=== PATIENT | female | born 1945 | race Caucasian/White ===

== ENCOUNTER 2025-01-05 11:16 | Emergency (ER) | payer MEDICARE, SELFPAY ==
[2025-01-05 11:30] VITALS: BP 192/102; PULSE 77; RESP 20; TEMP 37.1; O2SAT 96
--- NOTE | 2025-01-05 12:24 | PC.NURSE ---
provider in with pt, discussing plan of care. call placed to er for transfer
--- NOTE | 2025-01-05 12:33 | PC.NURSE ---
provider in room with pt and daughter, requesting to be sent to [place]. provider yasmeen solitario speaking with [facility]
--- NOTE | 2025-01-05 12:39 | ED.GENADULT ---
HPI - General Adult General Chief complaint: Unspecified Stated complaint: High B/P Time Seen by Provider: 01/05/25 12:00 Source: patient and RN notes reviewed Mode of arrival: ambulatory Limitations: no limitations History of Present Illness HPI narrative: 79-year-old female presents Express Care from optometry office complaining of high blood pressure and right vision problems. Patient said over the last 2-3 days she can see over right eye. Patient also reports that her blood pressure was as high as the 200 systolics at the optometry office and she was sent here for further evaluation of her blood pressure. Patient says she has outpatient scheduled appointment with an investigative agent for for her retinal artery occlusion. Also reports a headache. Patient states she has had fatigue over the last 10 years as well. Patient is does not have a medicine doctor but says she sees a psychiatrist. Patient does have a history of hypertension and takes lisinopril for it. Patient denies any slurred speech, focal weakness, facial droop, dizziness, chest pains, breathing problems, nausea vomiting, or any other symptoms. Patient had her eyes dilated prior to arrival at the aged or disabled carer office. Related Data Home Medications ?Medication ?Instructions ?Recorded ?Confirmed ?Last Taken ?Type bupropion HCl 150 mg 24 hr tablet, 150 mg PO DAILY 01/05/25 Unknown History extended release diazepam 2 mg tablet mg 01/05/25 Unknown History fluoxetine 10 mg capsule mg 01/05/25 Unknown History fluoxetine 20 mg capsule mg 01/05/25 Unknown History trazodone 100 mg tablet mg 01/05/25 Unknown History Allergies Allergy/AdvReac Type Severity Reaction Status Date / Time No Known Allergies Allergy Verified 01/05/25 11:52 Review of Systems Review of Systems: CONSTITUTIONAL: Denies fever, chills, or sweats. EYES: Positive visual changes. Negative for redness, or discharge. ENT: Denies rhinorrhea, congestion, sore throat, or otalgia. CARDIOVASCULAR: Denies chest pain, palpitations, or edema. RESPIRATORY: Denies cough or dyspnea. GASTROINTESTINAL: Denies abdominal pain, nausea, vomiting, or diarrhea. GENITOURINARY: Denies dysuria or hematuria. SKIN: Denies rash or itching. MUSCULOSKELETAL: Denies back pain, joint pain, or myalgia. NEUROLOGIC: Positive for headache. Negative for numbness, slurred speech, focal weakness, facial droop, confusion, seizures, loss of consciousness or weakness. PSYCHIATRIC: Denies anxiety or depression. All other systems reviewed are negative, except as documented in HPI. PMFSH Comments At the time of my signature, I reviewed and agree with the nursing past medical, surgical, social, and family history. There is no relevant family history pertinent to the patient complaint. Exam Narrative: GENERAL: This is a well-nourished, well-developed adult, in no apparent distress. They are non ill-appearing, nontoxic appearing. HEAD: normocephalic, atraumatic. EYES: Sclera clear/white. Conjunctiva normal. Vision is grossly intact the left eye. Patient says she is unable to see to the right eye. Extraocular movements intact. Pupils are dilated. EARS: External ears normal, NOSE: External nose normal THROAT: Mucous membranes moist, p NECK: Neck supple, CARDIOVASCULAR: Regular rate and rhythm without murmurs, gallops, or rubs. RESPIRATORY: Clear to auscultation. Breath sounds equal bilaterally. No wheezes, rales, or rhonchi. GASTROINTESTINAL: Abdomen soft, non-tender, nondistended. Bowel sounds are active. No hepato-splenomegaly, or palpable masses. No guarding. SKIN: warm, Dry, intact with no suspicious lesions or rash, good texture and turgor. NEURO: awake, alert, and oriented to person, place and time. There were no obvious focal neurologic abnormalities. 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 Leg strength 5/5 equal bilaterally. No facial droop. Speech is clear. EXTREMITIES: No joint tenderness, effusion, or edema noted. BACK: Nontender without deformity. Course Course Emergency Course: Portions of this record may have been created with voice recognition software Level of Care: Express Care Visit Vital Signs Vital signs: Vital Signs Temperature 98.7 F 01/05/25 11:30 Pulse Rate 77 01/05/25 11:30 Respiratory Rate 01/05/25 11:30 Blood Pressure 192/102 H 01/05/25 11:30 Pulse Oximetry 96 01/05/25 11:30 Oxygen Delivery Room Air 01/05/25 11:30 Temperature 98.7 F 01/05/25 11:30 Pulse Rate 77 01/05/25 11:30 Respiratory Rate 20 01/05/25 11:30 Blood Pressure 192/102 H 01/05/25 11:30 Pulse Oximetry 96 01/05/25 11:30 Oxygen Delivery Room Air 01/05/25 11:30 Reviewed Transfer Transfered to: [facility] Transportation: Other (Private vehicle) Transfer rationale: Possible retinal artery occlusion, rule out stroke, patient require higher level care Accepting physician: Dr. Sparks Medical Decision Making MDM Narrative Medical decision making narrative: Patient likely having hypertensive crisis patient's headache and vision changes. Cannot rule out CVA. NIH score of 2. Symptoms have been having going on the last 2-3 days. Last known normal adult least 2-3 days ago. Given patient's symptoms, it is recommend the patient seek a higher level care and proceed immediately to the emergency department. Patient family also the she go to an ER that has ophthalmology and neurosurgeon interventionalist. Patient family agreeable to go to [facility]. Called over to [facility] and spoke with Shara Zapata who is aware this patient and Dr. Sparks accepted the patient for transfer. Patient's mother says she will take her over to [facility]. Patient advised to remain NPO and proceed immediately to the ER. Differential Diagnosis Differential Diagnosis: CVA, retinal artery occlusion, cataract, hypertensive crisis, hypertensive urgency Vital Signs Vital Signs: Vital Signs Temperature 98.7 F 01/05/25 11:30 Pulse Rate 77 01/05/25 11:30 Respiratory Rate 20 01/05/25 11:30 Blood Pressure 192/102 H 01/05/25 11:30 Pulse Oximetry 96 01/05/25 11:30 Oxygen Delivery Room Air 01/05/25 11:30 Temperature 98.7 F 01/05/25 11:30 Pulse Rate 77 01/05/25 11:30 Respiratory Rate 20 01/05/25 11:30 Blood Pressure 192/102 H 01/05/25 11:30 Pulse Oximetry 96 01/05/25 11:30 Oxygen Delivery Room Air 01/05/25 11:30 Critical Care Time Critical Care Time Critical Care Time: No Discharge Plan Discharge Clinical Impression: Vision problems Hypertension Qualifiers: Hypertension type: unspecified Qualified Code(s): I10 - Essential (primary) hypertension Patient Disposition: Acute Care Hospital Condition: Stable Patient Language: Azeri Prescriptions: No Action trazodone 100 mg tablet diazepam 2 mg tablet fluoxetine 10 mg capsule fluoxetine 20 mg capsule bupropion HCl 150 mg tablet extended release 24 hr 150 mg PO DAILY Follow-up/Referrals: PHYSICIAN NOT ON STAFF,NONSTAFF [Primary Care Provider] - Time of Disposition: 12:39
== END 2025-01-05 12:42 | disposition short-term general hospital (02) ==
DX: H53.9 Unspecified visual disturbance (principal); I10 Essential (primary) hypertension; H34.9 Unspecified retinal vascular occlusion; F32.A Depression, unspecified; Z86.73 Personal history of transient ischemic attack (TIA), and cerebral infarction without residual deficits
CPT/HCPCS: 99213; G0463

== ENCOUNTER 2025-01-05 13:23 | Observation (INO) | payer MEDICARE, SELFPAY ==
[2025-01-05] VITALS (87 sets, daily range): BP systolic 128–239; BP diastolic 57–191; PULSE 65–142; RESP 8–27; TEMP 36.4; O2SAT 93–100
--- NOTE | ~2025-01-05 | XR_ITS ---
CHEST RADIOGRAPH CLINICAL HISTORY: cva w/u . COMPARISON: None available TECHNIQUE: Single portable view of the chest. FINDINGS The cardiomediastinal silhouette is unremarkable. The lungs are clear. IMPRESSION: No focal infiltrate or effusion. Reviewed, dictated and finalized at location A.
--- NOTE | ~2025-01-05 | CT_ITS ---
EXAMINATION: CTA BRAIN/CAROTID DATE: 01/05/2025 14:30 INDICATION: Stroke TECHNIQUE: Computed tomographic angiography (CTA) of the head and neck was performed with 100 mL Omni paque-350 intravenous contrast. Multiplanar reconstructions and maximum intensity projection 3D-recon structions of the carotid arteries and of the intracranial arteries were created by the technologist on a separate workstation. Precontrast CT of the head was also obtained. Automated exposure control and iterative reconstruction technique were employed.The dose-length product was 1754.01 mGy-cm. COMPARISON: None. FINDINGS: Carotid arteries: Visualized aortic arch is normal in caliber with no dissection and small amount of nonhemodynamically significant atherosclerotic plaque. Right vertebral artery is dominant. There is small of atheroscle rotic plaque with 0% stenosis of the right and left carotid bulbs relative to normal distal artery clark men diameter (NASCET criteria). Likely benign Agnes right thyroid nodule. Mild emphysema in the v isualized upper lungs. OR calcifications at bilateral breast implants. Severe cervical spondylosis. Head: No acute intracranial hemorrhage, acute infarction or abnormal extra axial fluid collection. Dystroph ic calcifications and old lacunar infarcts at the bilateral basal ganglia. There is mild scattered wh ite matter hypoattenuation consistent with chronic small vessel ischemic disease. Symmetric prominenc e of the sulci consistent with mild age-appropriate diffuse cerebral volume loss.Ventricles are norm al and symmetric. No mass/mass effect. No abnormally enhancing brain lesions on the postcontrast imag ing. Changes of bilateral intraocular lens replacement. The orbits, paranasal sinuses and mastoid air cells are normal. There is suggestion of some bone graft material along the floor of the right maxil jolly sinus surrounding tip of a dental implant. Intracranial arteries Vertebral arteries are codominant. Small amount of nonhemodynamically significant atherosclerotic tomy que at the bilateral carotid siphons. There is no hemodynamically significant stenosis in the vertebr al, basilar and internal carotid arteries. Both A1 and P1 segments are patent. There is a moderate, 5 0-70% stenosis at the left P1 segment. There are no aneurysms identified. Cerebral arterial arboriza tion appears symmetric. IMPRESSION: 1. Small mild atherosclerotic plaque with 0% stenosis of the right and left carotid bulbs relative to normal distal artery lumen diameter (NASCET criteria). 2. Moderate, 50-70% stenosis P1 segment of the left posterior cerebral artery. Otherwise unremarkable cerebral CT angiogram. 3. Small old infarcts at the bilateral basal ganglia. No acute intracranial process or abnormally enh ancing brain lesions. 4. Age-related changes including mild diffuse volume loss and mild scattered white matter hypoattenua tion consistent with chronic small vessel ischemic disease. Reviewed, dictated and finalized at location A. IMPRESSION: 1. Small mild atherosclerotic plaque with 0% stenosis of the right and left car otid bulbs relative to normal distal artery lumen diameter (NASCET criteria). 2. Moderate, 50-70% stenosis P1 segment of the left posterior cerebral artery. Otherwise unremarkable cerebral CT angiogram. 3. Small old infarcts at the bilateral basal ganglia. No acute intracranial pro cess or abnormally enhancing brain lesions. 4. Age-related changes including mild diffuse volume loss and mild scattered wh ite matter hypoattenuation consistent with chronic small vessel ischemic diseas e.
--- OUTSIDE RECORDS SUMMARY | 2025-01-05 13:30 | XMS_ITS | Clinical Summary ---
Author Organization [facility] Address [address] 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
--- OUTSIDE RECORDS SUMMARY | 2025-01-05 13:30 | XMS_ITS | Encounter Summary ---
Author Organization [facility] Address 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
--- NOTE | 2025-01-05 13:50 | ECG_ITS ---
Test Date: 2025-01-05 13:53:07 Measurements Intervals [place] Rate: 65 P: -27 MS: 107 QRS: -3 QRSD: 97 T: 87 QT: 375 QTc: 392 Interpretive Statements SINUS RHYTHM WITH SHORT MS INTERVAL DELAYED PRECORDIAL R/S TRANSITION LEFT VENTRICULAR HYPERTROPHY AND ST-T CHANGE BASELINE ARTIFACT- I, III, AVR, AVL, AVF BORDERLINE ECG No previous ECG available for comparison Electronically Signed On 01-05-2025 14:02:19 CDT by Cristiano Monique D.O.
[2025-01-05 14:13] LABS: Hematocrit 35.2 % (37.0-47.0); Hemoglobin 11.5 g/dL (12.0-15.0); Immature Granulocyte Percent A 0.2 % (0-0.5); Lymphocytes Absolute Auto 2.70 K/mm3 (0.9-3.2); Mean Corpuscular HGB Conc 32.7 g/dl (32-36); Mean Corpuscular Hemoglobin 28.9 pg (26-34); Mean Corpuscular Volume 88.4 fl (80-100); Nucleated Red Blood Cells Absolute Auto 0.000 K/mm3 (0.0-0.012); Nucleated Red Blood Cells Perc 0.0 % (0.0-0.2); Platelet Count Result 279 k/mm3 (150-375); Red Blood Count 3.98 M/mm3 (4.2-5.4); White Blood Count 8.8 K/mm3 (4.5-10.0)
--- OUTSIDE RECORDS SUMMARY | 2025-01-05 14:19 | XMS_ITS | Clinical Summary ---
Author Organization [facility] Address [address] 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
--- OUTSIDE RECORDS SUMMARY | 2025-01-05 14:19 | XMS_ITS | Encounter Summary ---
Author Organization [facility] Address 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
[2025-01-05 14:23] LABS: Estimated CRCL calculation 33 ml/min; Estimated Glomerular Filt Rate 48
[2025-01-05 14:27] LABS: Alanine Aminotransferase 16 U/L (6-35); Albumin Level 3.7 g/dL (3.5-5.1); Alkaline Phosphatase 73 U/L (38-126); Anion Gap 8 mmol/L (4-12); Aspartate Amino Transferase 31 U/L (14-36); Bilirubin,Total 0.4 mg/dL (0.2-1.3); Blood Urea Nitrogen 12 mg/dL (7-17); Calcium 8.8 mg/dL (8.4-10.2); Carbon Dioxide 23 mmol/L (22-30); Chloride 108 mmol/L (98-107); Estimated CRCL calculation 38 ml/min; Estimated Glomerular Filt Rate 57; Glucose 96 mg/dL (65-110); Potassium 3.6 mmol/L (3.4-5.0); Sodium 139 mmol/L (137-145); Total Protein 6.5 g/dL (6.3-8.2)
[2025-01-05 14:33] LABS: Troponin I < 0.012 ng/mL (0.000-0.034)
[2025-01-05 14:40] LABS: INR 1.0; Prothrombin Time 13.2 Seconds (11.1-14.7)
[2025-01-05 14:41] LABS: Partial Thromboplastin Time 31.7 Seconds (22.3-36.8)
[2025-01-05 14:49] LABS: Magnesium 1.8 mg/dL (1.6-2.3)
--- NOTE | 2025-01-05 15:25 | ED.GENADULT ---
HPI - General Adult General Chief complaint: Recheck/Abnormal Lab/Rx <Jailyn Alberto PA-C - Last Filed: 01/05/25 19:36> Stated complaint: HTN <Jailyn Alberto PA-C - Last Filed: 01/05/25 19:36> Time Seen by Provider: 01/05/25 13:58 <DAWSON Vaughn Last Filed: 01/05/25 19:36> Source: patient <DAWSON Vaughn Last Filed: 01/05/25 19:36> Mode of arrival: ambulatory <DAWSON Vaughn Last Filed: 01/05/25 19:36> Limitations: no limitations <DAWSON Vaughn Last Filed: 01/05/25 19:36> History of Present Illness HPI narrative: Patient is a 79-year-old female who presents the ED with report of right eye blindness and elevated blood pressure. Patient reports she was doing a crossword puzzle two days ago when she suddenly lost vision in her R eye. States she is occasionally able to see lights in her R eye. She saw an abrasive mixer yesterday and was diagnosed with a central retinal artery occlusion. Was referred to a retinal specialist next week. Patient went to an urgent care today as her blood pressure was elevated. Patient is on lisinopril 20 mg daily. She takes this regularly. She does not remember the last time she checked her blood pressure, greater than at least 1 year ago. Patient denies left eye vision changes, slurred speech, confusion, numbness, tingling, weakness of extremities. <DAWSON Vaughn Last Filed: 01/05/25 19:36> Related Data Home medications: Home Medications ?Medication ?Instructions ?Recorded ?Confirmed ?Last Taken ?Type bupropion HCl 150 mg 24 hr tablet, 150 mg PO DAILY 01/05/25 01/05/25 Unknown History extended release diazepam 2 mg tablet 4 mg HS 01/05/25 Unknown History fluoxetine 10 mg capsule 10 mg 01/05/25 Unknown History fluoxetine 20 mg capsule 20 mg 01/05/25 Unknown History guaifenesin 1,200 mg tablet, 1,200 mg PO HS 01/05/25 01/05/25 Unknown History extended release 12 hr (Mucinex) lisinopril 10 mg tablet 10 mg PO DAILY 01/05/25 01/05/25 Unknown History trazodone 100 mg tablet 200 mg 01/05/25 Unknown History <DAWSON Vaughn Last Filed: 01/05/25 19:36> Allergies/adverse reactions: Allergies Allergy/AdvReac Type Severity Reaction Status Date / Time No Known Allergies Allergy Verified 01/05/25 13:58 <DAWSON Vaughn Last Filed: 01/05/25 19:36> Review of Systems Review of Systems: All systems reviewed & are unremarkable except as noted in HPI. <DAWSON Vaughn Last Filed: 01/05/25 19:36> All systems reviewed & are unremarkable except as noted in HPI and below <DAWSON Vaughn Last Filed: 01/05/25 19:36> Exam Narrative: GENERAL: Elderly, well-nourished, non-toxic, in no acute distress. HEAD: Normocephalic, atraumatic. EYES: PERRL/EOMI, conjunctivae clear bilaterally. No nystagmus. NECK: Supple. No meningeal signs. RESPIRATORY: Airway patent, respirations nonlabored. Clear to auscultation bilaterally, no rales, rhonchi, wheezing. CARDIOVASCULAR: Regular rate and rhythm without murmurs, rubs, or gallops. Peripheral pulses 2+ and equal bilaterally. MUSCULOSKELETAL: Moves all extremities. No gross deformities. SKIN: Warm, dry, normal color. No rashes. NEURO: A&O X3. Speech clear. Follows commands. Right eye visual loss, unable to appreciate any shapes or lights in right eye. Sensation grossly intact. Steady gait. No ataxic movements. Strength 5/5 in upper and lower extremities bilaterally. [id number] and [id number]-vz-[id number] testing slightly uncoordinated bilaterally, but appear symmetric bilaterally. No pronator drift. Equal mud analysis well logging captain strength bilaterally. PSYCHIATRIC: Appropriate mood and affect. Normal interaction. <DAWSON Vaughn Last Filed: 01/05/25 19:36> Course Course Emergency Course: Patient signed out to me the evening of 01/05/2025. Patient's home medications were reviewed and I did place orders for PM medications. Patient still awaiting a bed at [facility] versus [place] ([facility] for both) at sign out on 01/06/25 07:30am. <Lindsey Dennis MD - Last Filed: 01/06/25 07:26> Patient signed out to me the evening of 01/05/2025. Patient's home medications were reviewed and I did place orders for PM medications. Patient still awaiting a bed at [facility] versus [place] ([facility] for both) at sign out on 01/06/25 07:30am. 01/07/25 at 1745: Admit to hospitalist service for observation. Still awaiting a bed at [facility] and [facility]. Patient has received hydralazine x1 today for uncontrolled hypertension. <Nate Nelson MD - Last Filed: 01/07/25 17:54> [employer]/PA Physician Supervision I did review the chart agree with the management <Moreno Dalton MD - Last Filed: 01/05/25 18:15> Vital Signs Vital signs: Vital Signs Temperature 97.5 F L 01/05/25 13:29 Pulse Rate 88 01/05/25 13:29 Respiratory Rate 16 01/05/25 13:29 Blood Pressure 201/101 H 01/05/25 13:29 Pulse Oximetry 98 01/05/25 13:29 Temperature 98.2 F 01/07/25 16:40 Pulse Rate 81 01/07/25 17:22 Respiratory Rate 16 01/07/25 17:22 Blood Pressure 142/86 H 01/07/25 17:22 Pulse Oximetry 96 01/07/25 17:22 Oxygen Delivery Room Air 01/05/25 13:56 <Jailyn Alberto PA-C - Last Filed: 01/05/25 19:36> Vital Signs Temperature 97.5 F L 01/05/25 13:29 Pulse Rate 88 01/05/25 13:29 Respiratory Rate 16 01/05/25 13:29 Blood Pressure 201/101 H 01/05/25 13:29 Pulse Oximetry 98 01/05/25 13:29 Temperature 98.2 F 01/07/25 16:40 Pulse Rate 81 01/07/25 17:22 Respiratory Rate 16 01/07/25 17:22 Blood Pressure 142/86 H 01/07/25 17:22 Pulse Oximetry 96 01/07/25 17:22 Oxygen Delivery Room Air 01/05/25 13:56 <Moreno Dalton MD - Last Filed: 01/05/25 18:15> Vital Signs Temperature 97.5 F L 01/05/25 13:29 Pulse Rate 88 01/05/25 13:29 Respiratory Rate 16 01/05/25 13:29 Blood Pressure 201/101 H 01/05/25 13:29 Pulse Oximetry 98 01/05/25 13:29 Temperature 98.2 F 01/07/25 16:40 Pulse Rate 81 01/07/25 17:22 Respiratory Rate 16 01/07/25 17:22 Blood Pressure 142/86 H 01/07/25 17:22 Pulse Oximetry 96 01/07/25 17:22 Oxygen Delivery Room Air 01/05/25 13:56 <Lindsey Dennis MD - Last Filed: 01/06/25 07:26> Vital Signs Temperature 97.5 F L 01/05/25 13:29 Pulse Rate 88 01/05/25 13:29 Respiratory Rate 16 01/05/25 13:29 Blood Pressure 201/101 H 01/05/25 13:29 Pulse Oximetry 98 01/05/25 13:29 Temperature 98.2 F 01/07/25 16:40 Pulse Rate 81 01/07/25 17:22 Respiratory Rate 16 01/07/25 17:22 Blood Pressure 142/86 H 01/07/25 17:22 Pulse Oximetry 96 01/07/25 17:22 Oxygen Delivery Room Air 01/05/25 13:56 <Nate Nelson MD - Last Filed: 01/07/25 17:54> Medical Decision Making MDM Narrative Medical decision making narrative: Patient presented to ED due with 2 day history of right eye vision loss, elevated blood pressure. Patient's blood pressure 201/101 upon arrival. She does take lisinopril 20 mg daily, but does not remember the last time she has actually checked her blood pressure. May have been elevated for quite some time. She does not have any appreciable vision in her right eye. Unable to see lights or shapes. She is otherwise neurologically intact upon my evaluation. I do not appreciate any other focal deficits. CVA workup was initiated. EKG with sinus rhythm. No significant concerning ST changes. Laboratory studies without leukocytosis. Hemoglobin 11.5. No records to compare to. CMP is fairly unremarkable. Stable kidney function. Stable electrolytes. Troponin undetectable. Chest x-ray is clear. CTA brain and carotids was obtained showing moderate 50-70% stenosis of the P1 segment of the left posterior cerebral artery. Small old infarcts. Age-related changes. Patient will need further neurologic and ophthalmologic evaluation. Unfortunately we do not have either the services here to us today. Will require transfer to tertiary center. Patient would prefer to go to [facility]. Discussed case with Dr. Rhodes, neurology @ [facility], accepted patient for transfer. Awaiting bed placement. Recommended to start aspirin and Plavix. Recommend to keep blood pressure around [address] Juares, neurology @ [facility], accepted patient for transfer under Dr. Hutchins. Awaiting bed placement. Care signed out to Dr. Dennis at shift change pending transfer bed placement. <Jailyn Alberto PA-C - Last Filed: 01/05/25 19:36> Medical Records Medical records reviewed: Yes I reviewed the external patient's medical records. <Jailyn Alberto PA-C - Last Filed: 01/05/25 19:36> Vital Signs Vital Signs: Vital Signs Temperature 97.5 F L 01/05/25 13:29 Pulse Rate 88 01/05/25 13:29 Respiratory Rate 16 01/05/25 13:29 Blood Pressure 201/101 H 01/05/25 13:29 Pulse Oximetry 98 01/05/25 13:29 Temperature 98.2 F 01/07/25 16:40 Pulse Rate 81 01/07/25 17:22 Respiratory Rate 16 01/07/25 17:22 Blood Pressure 142/86 H 01/07/25 17:22 Pulse Oximetry 96 01/07/25 17:22 Oxygen Delivery Room Air 01/05/25 13:56 <Jailyn Alberto PA-C - Last Filed: 01/05/25 19:36> Vital Signs Temperature 97.5 F L 01/05/25 13:29 Pulse Rate 88 01/05/25 13:29 Respiratory Rate 16 01/05/25 13:29 Blood Pressure 201/101 H 01/05/25 13:29 Pulse Oximetry 98 01/05/25 13:29 Temperature 98.2 F 01/07/25 16:40 Pulse Rate 81 01/07/25 17:22 Respiratory Rate 16 01/07/25 17:22 Blood Pressure 142/86 H 01/07/25 17:22 Pulse Oximetry 96 01/07/25 17:22 Oxygen Delivery Room Air 01/05/25 13:56 <Moreno Dalton MD - Last Filed: 01/05/25 18:15> Vital Signs Temperature 97.5 F L 01/05/25 13:29 Pulse Rate 88 01/05/25 13:29 Respiratory Rate 16 01/05/25 13:29 Blood Pressure 201/101 H 01/05/25 13:29 Pulse Oximetry 98 01/05/25 13:29 Temperature 98.2 F 01/07/25 16:40 Pulse Rate 81 01/07/25 17:22 Respiratory Rate 16 01/07/25 17:22 Blood Pressure 142/86 H 01/07/25 17:22 Pulse Oximetry 96 01/07/25 17:22 Oxygen Delivery Room Air 01/05/25 13:56 <Lindsey Dennis MD - Last Filed: 01/06/25 07:26> Vital Signs Temperature 97.5 F L 01/05/25 13:29 Pulse Rate 88 01/05/25 13:29 Respiratory Rate 16 01/05/25 13:29 Blood Pressure 201/101 H 01/05/25 13:29 Pulse Oximetry 98 01/05/25 13:29 Temperature 98.2 F 01/07/25 16:40 Pulse Rate 81 01/07/25 17:22 Respiratory Rate 16 01/07/25 17:22 Blood Pressure 142/86 H 01/07/25 17:22 Pulse Oximetry 96 01/07/25 17:22 Oxygen Delivery Room Air 01/05/25 13:56 <Nate Nelson MD - Last Filed: 01/07/25 17:54> Lab Data Lab results reviewed: Yes I reviewed the patient's lab results. <Jailyn Alberto PA-C - Last Filed: 01/05/25 19:36> Result diagrams: 01/05/25 14:06 01/05/25 14:16 <Jailyn Alberto PA-C - Last Filed: 01/05/25 19:36> Labs: Lab Results 01/05/25 01/05/25 Range/Units 14:06 14:16 WBC 8.8 (4.5-10.0) K/mm3 RBC 3.98 L (4.2-5.4) M/mm3 Hgb 11.5 L (12.0-15.0) g/dL Hct 35.2 L (37.0-47.0) % MCV 88.4 (80-100) fl MCH 28.9 (26-34) pg MCHC 32.7 (32-36) g/dl RDW 13.7 (11.5-14.5) % Plt Count 279 (150-375) k/mm3 MPV 8.6 (7.4-10.4) fl Immature Gran % (Auto) 0.2 (0-0.5) % Neut % (Auto) 57.3 (45.5-73.1) % Lymph % (Auto) 30.9 (18.3-44.2) % Lagrange % (Auto) 9.5 H (2.6-8.5) % Eos % (Auto) 1.5 (0-4.4) % Baso % (Auto) 0.6 (0.2-1.2) % Lymph # (Auto) 2.70 (0.9-3.2) K/mm3 Lagrange # (Auto) 0.8 H (0.1-0.6) K/mm3 Eos # (Auto) 0.1 (0-0.3) K/mm3 Baso # (Auto) 0.1 (0.0-0.1) K/mm3 Abs Immat Gran (auto) 0.02 (0.00-0.031) K/mm3 Absolute Neuts (auto) 5.0 (1.3-6.7) K/mm3 Absolute Nucleated RBC 0.000 (0.0-0.012) K/mm3 Nucleated RBC % 0.0 (0.0-0.2) % PT 13.2 (11.1-14.7) Seconds INR 1.0 APTT 31.7 (22.3-36.8) Seconds Sodium 139 (137-145) mmol/L Potassium 3.6 (3.4-5.0) mmol/L Chloride 108 H (98-107) mmol/L Carbon Dioxide 23 (22-30) mmol/L Anion Gap 8 (4-12) mmol/L BUN 12 (7-17) mg/dL Creatinine 0.95 1.10 (0.7-1.0) mg/dL Estim Creat Clear Calc 38 33 ml/min Estimated GFR 57 L 48 L (59 - ) Glucose 96 (65-110) mg/dL Calcium 8.8 (8.4-10.2) mg/dL Magnesium 1.8 (1.6-2.3) mg/dL Total Bilirubin 0.4 (0.2-1.3) mg/dL AST 31 (14-36) U/L ALT 16 (6-35) U/L Alkaline Phosphatase 73 (38-126) U/L Troponin I < 0.012 (0.000-0.034) ng/mL Total Protein 6.5 (6.3-8.2) g/dL Albumin 3.7 (3.5-5.1) g/dL <Jailyn Alberto PA-C - Last Filed: 01/05/25 19:36> Lab Results 01/05/25 01/05/25 Range/Units 14:06 14:16 WBC 8.8 (4.5-10.0) K/mm3 RBC 3.98 L (4.2-5.4) M/mm3 Hgb 11.5 L (12.0-15.0) g/dL Hct 35.2 L (37.0-47.0) % MCV 88.4 (80-100) fl MCH 28.9 (26-34) pg MCHC 32.7 (32-36) g/dl RDW 13.7 (11.5-14.5) % Plt Count 279 (150-375) k/mm3 MPV 8.6 (7.4-10.4) fl Immature Gran % (Auto) 0.2 (0-0.5) % Neut % (Auto) 57.3 (45.5-73.1) % Lymph % (Auto) 30.9 (18.3-44.2) % Lagrange % (Auto) 9.5 H (2.6-8.5) % Eos % (Auto) 1.5 (0-4.4) % Baso % (Auto) 0.6 (0.2-1.2) % Lymph # (Auto) 2.70 (0.9-3.2) K/mm3 Lagrange # (Auto) 0.8 H (0.1-0.6) K/mm3 Eos # (Auto) 0.1 (0-0.3) K/mm3 Baso # (Auto) 0.1 (0.0-0.1) K/mm3 Abs Immat Gran (auto) 0.02 (0.00-0.031) K/mm3 Absolute Neuts (auto) 5.0 (1.3-6.7) K/mm3 Absolute Nucleated RBC 0.000 (0.0-0.012) K/mm3 Nucleated RBC % 0.0 (0.0-0.2) % PT 13.2 (11.1-14.7) Seconds INR 1.0 APTT 31.7 (22.3-36.8) Seconds Sodium 139 (137-145) mmol/L Potassium 3.6 (3.4-5.0) mmol/L Chloride 108 H (98-107) mmol/L Carbon Dioxide 23 (22-30) mmol/L Anion Gap 8 (4-12) mmol/L BUN 12 (7-17) mg/dL Creatinine 0.95 1.10 (0.7-1.0) mg/dL Estim Creat Clear Calc 38 33 ml/min Estimated GFR 57 L 48 L (59 - ) Glucose 96 (65-110) mg/dL Calcium 8.8 (8.4-10.2) mg/dL Magnesium 1.8 (1.6-2.3) mg/dL Total Bilirubin 0.4 (0.2-1.3) mg/dL AST 31 (14-36) U/L ALT 16 (6-35) U/L Alkaline Phosphatase 73 (38-126) U/L Troponin I < 0.012 (0.000-0.034) ng/mL Total Protein 6.5 (6.3-8.2) g/dL Albumin 3.7 (3.5-5.1) g/dL <Moreno Dalton MD - Last Filed: 01/05/25 18:15> Lab Results 01/05/25 01/05/25 Range/Units 14:06 14:16 WBC 8.8 (4.5-10.0) K/mm3 RBC 3.98 L (4.2-5.4) M/mm3 Hgb 11.5 L (12.0-15.0) g/dL Hct 35.2 L (37.0-47.0) % MCV 88.4 (80-100) fl MCH 28.9 (26-34) pg MCHC 32.7 (32-36) g/dl RDW 13.7 (11.5-14.5) % Plt Count 279 (150-375) k/mm3 MPV 8.6 (7.4-10.4) fl Immature Gran % (Auto) 0.2 (0-0.5) % Neut % (Auto) 57.3 (45.5-73.1) % Lymph % (Auto) 30.9 (18.3-44.2) % Lagrange % (Auto) 9.5 H (2.6-8.5) % Eos % (Auto) 1.5 (0-4.4) % Baso % (Auto) 0.6 (0.2-1.2) % Lymph # (Auto) 2.70 (0.9-3.2) K/mm3 Lagrange # (Auto) 0.8 H (0.1-0.6) K/mm3 Eos # (Auto) 0.1 (0-0.3) K/mm3 Baso # (Auto) 0.1 (0.0-0.1) K/mm3 Abs Immat Gran (auto) 0.02 (0.00-0.031) K/mm3 Absolute Neuts (auto) 5.0 (1.3-6.7) K/mm3 Absolute Nucleated RBC 0.000 (0.0-0.012) K/mm3 Nucleated RBC % 0.0 (0.0-0.2) % PT 13.2 (11.1-14.7) Seconds INR 1.0 APTT 31.7 (22.3-36.8) Seconds Sodium 139 (137-145) mmol/L Potassium 3.6 (3.4-5.0) mmol/L Chloride 108 H (98-107) mmol/L Carbon Dioxide 23 (22-30) mmol/L Anion Gap 8 (4-12) mmol/L BUN 12 (7-17) mg/dL Creatinine 0.95 1.10 (0.7-1.0) mg/dL Estim Creat Clear Calc 38 33 ml/min Estimated GFR 57 L 48 L (59 - ) Glucose 96 (65-110) mg/dL Calcium 8.8 (8.4-10.2) mg/dL Magnesium 1.8 (1.6-2.3) mg/dL Total Bilirubin 0.4 (0.2-1.3) mg/dL AST 31 (14-36) U/L ALT 16 (6-35) U/L Alkaline Phosphatase 73 (38-126) U/L Troponin I < 0.012 (0.000-0.034) ng/mL Total Protein 6.5 (6.3-8.2) g/dL Albumin 3.7 (3.5-5.1) g/dL <Lindsey Dennis MD - Last Filed: 01/06/25 07:26> Lab Results 01/05/25 01/05/25 Range/Units 14:06 14:16 WBC 8.8 (4.5-10.0) K/mm3 RBC 3.98 L (4.2-5.4) M/mm3 Hgb 11.5 L (12.0-15.0) g/dL Hct 35.2 L (37.0-47.0) % MCV 88.4 (80-100) fl MCH 28.9 (26-34) pg MCHC 32.7 (32-36) g/dl RDW 13.7 (11.5-14.5) % Plt Count 279 (150-375) k/mm3 MPV 8.6 (7.4-10.4) fl Immature Gran % (Auto) 0.2 (0-0.5) % Neut % (Auto) 57.3 (45.5-73.1) % Lymph % (Auto) 30.9 (18.3-44.2) % Lagrange % (Auto) 9.5 H (2.6-8.5) % Eos % (Auto) 1.5 (0-4.4) % Baso % (Auto) 0.6 (0.2-1.2) % Lymph # (Auto) 2.70 (0.9-3.2) K/mm3 Lagrange # (Auto) 0.8 H (0.1-0.6) K/mm3 Eos # (Auto) 0.1 (0-0.3) K/mm3 Baso # (Auto) 0.1 (0.0-0.1) K/mm3 Abs Immat Gran (auto) 0.02 (0.00-0.031) K/mm3 Absolute Neuts (auto) 5.0 (1.3-6.7) K/mm3 Absolute Nucleated RBC 0.000 (0.0-0.012) K/mm3 Nucleated RBC % 0.0 (0.0-0.2) % PT 13.2 (11.1-14.7) Seconds INR 1.0 APTT 31.7 (22.3-36.8) Seconds Sodium 139 (137-145) mmol/L Potassium 3.6 (3.4-5.0) mmol/L Chloride 108 H (98-107) mmol/L Carbon Dioxide 23 (22-30) mmol/L Anion Gap 8 (4-12) mmol/L BUN 12 (7-17) mg/dL Creatinine 0.95 1.10 (0.7-1.0) mg/dL Estim Creat Clear Calc 38 33 ml/min Estimated GFR 57 L 48 L (59 - ) Glucose 96 (65-110) mg/dL Calcium 8.8 (8.4-10.2) mg/dL Magnesium 1.8 (1.6-2.3) mg/dL Total Bilirubin 0.4 (0.2-1.3) mg/dL AST 31 (14-36) U/L ALT 16 (6-35) U/L Alkaline Phosphatase 73 (38-126) U/L Troponin I < 0.012 (0.000-0.034) ng/mL Total Protein 6.5 (6.3-8.2) g/dL Albumin 3.7 (3.5-5.1) g/dL <Nate Nelson MD - Last Filed: 01/07/25 17:54> Imaging Data Attestation: I personally reviewed and interpreted this imaging study as follows: <Jailyn Alberto PA-C - Last Filed: 01/05/25 19:36> Radiologist's impression: ITS Impressions Chest X-Ray 01/05/25 16:07 IMPRESSION: No focal infiltrate or effusion. Head/Neck CTA 01/05/25 16:11 IMPRESSION: 1. Small mild atherosclerotic plaque with 0% stenosis of the right and left carotid bulbs relative to normal distal artery lumen diameter (NASCET criteria). 2. Moderate, 50-70% stenosis P1 segment of the left posterior cerebral artery. Otherwise unremarkable cerebral CT angiogram. 3. Small old infarcts at the bilateral basal ganglia. No acute intracranial process or abnormally enhancing brain lesions. 4. Age-related changes including mild diffuse volume loss and mild scattered white matter hypoattenuation consistent with chronic small vessel ischemic disease. 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, Sudden visual loss of right eye, Elevated blood pressure reading <DAWSON Vaughn Last Filed: 01/05/25 19:36> Patient Disposition: Still a Patient <DAWSON Vaughn Last Filed: 01/05/25 19:36> Condition: Stable <DAWSON Vaughn Last Filed: 01/05/25 19:36> Patient Language: Ukrainian <DAWSON Vaughn Last Filed: 01/05/25 19:36> Prescriptions: No Action trazodone 100 mg tablet 200 mg diazepam 2 mg tablet 4 mg HS fluoxetine 10 mg capsule 10 mg fluoxetine 20 mg capsule 20 mg bupropion HCl 150 mg tablet extended release 24 hr 150 mg PO DAILY lisinopril 10 mg tablet 10 mg PO DAILY guaifenesin [Mucinex] 1,200 mg tablet extended release 12hr 1,200 mg PO HS <Jailyn Alberto PA-C - Last Filed: 01/05/25 19:36> Follow-up/Referrals: PHYSICIAN NOT ON STAFF,NONSTAFF [Primary Care Provider] - <Jailyn Alberto PA-C - Last Filed: 01/05/25 19:36>
[2025-01-05] MEDS: ASPIRIN 81 MG CHEWABLE TABLET 324 MG PO (18:31)
[2025-01-05] MEDS: CLOPIDOGREL BISULFATE 75 MG TABLET PO (18:38)
--- NOTE | 2025-01-05 19:21 | PC.NURSE ---
Natasha Lane called for RN to RN Pt accepted to Neuro Floor by Dr. Hutchins Currently on ED Block Status - they do have neuro beds but will have us on a waitlist until they go through the er there and see if anyone will potentially need neuro beds in their own er first.
--- NOTE | 2025-01-05 23:00 | PC.NURSE ---
med list provided by daughter. Pt only takes the following medications. Morning Dosing - Buproprion 150mg, prozac 30mg, lisinopril 10mg Bedtime Dosing - Valium 2mg, trazodone 100mg, mucinex 1200mg
[2025-01-05] MEDS: diazePAM (*CRX) 2 MG TABLET PO (23:39)
[2025-01-05] MEDS: guaiFENesin 600 MG/DEXTROMETHORPHAN 30 MG SR TAB 12 HR 1 TAB PO (23:42)
[2025-01-06] VITALS (28 sets, daily range): BP systolic 130–200; BP diastolic 70–117; PULSE 70–105; RESP 15–28; TEMP 36.8; O2SAT 94–99
[2025-01-06] MEDS: diazePAM (*CRX) 2 MG TABLET PO (00:48)
--- NOTE | 2025-01-06 01:12 | PC.NURSE ---
pt given night time home medications, and placed in a [facility] Hospital Bed
[2025-01-06] MEDS: ASPIRIN 81 MG CHEWABLE TABLET PO (08:25)
[2025-01-06] MEDS: CLOPIDOGREL BISULFATE 75 MG TABLET PO (08:50)
[2025-01-06] MEDS: ACETAMINOPHEN 500 MG TABLET 1000 MG PO ×2 (14:16→21:23)
--- NOTE | 2025-01-06 19:14 | PC.NURSE ---
Assumed care of patient after receiving report from Ketty RN & GEOVANI Ralph. @ [phone]
--- NOTE | 2025-01-06 20:17 | PC.NURSE ---
Spoke with Lorraine from [facility] Transfer center to answer triage questions. Lorraine stated they are at full capacity and pt will most likely not be getting a bed assignment tonight.
[2025-01-06] MEDS: diazePAM (*CRX) 2 MG TABLET 4 MG PO (21:23)
[2025-01-07] VITALS (60 sets, daily range): BP systolic 117–212; BP diastolic 51–138; PULSE 64–104; RESP 0–31; TEMP 36.6–36.8; O2SAT 95–98; BMI 25.2
--- NOTE | 2025-01-07 06:08 | PC.NURSE ---
Answered triage questions for [facility] transfer center. Pt currently still on the waiting list. No beds at this time.
--- NOTE | 2025-01-07 08:30 | PC.NURSE ---
Spoke with [facility] access [facility]. Per Access [facility] they are still working on a bed. No update on how much longer bed placement could take.
[2025-01-07] MEDS: CLOPIDOGREL BISULFATE 75 MG TABLET PO (08:45)
[2025-01-07] MEDS: ASPIRIN 81 MG CHEWABLE TABLET PO (08:45)
--- NOTE | 2025-01-07 08:58 | PC.NURSE ---
Breakfast tray ordered for patient at this time
--- NOTE | 2025-01-07 11:36 | PC.NURSE ---
Lunch tray ordered for patient at this time.
--- NOTE | 2025-01-07 15:00 | PC.NURSE ---
Report given to GEOVANI Solano
[2025-01-07] MEDS: HYDROcodone/acetaminophen (*CRX) 5-325 MG TABLET 1 TAB PO (21:26)
[2025-01-07] MEDS: LORATADINE 10 MG TABLET PO (21:26)
[2025-01-07] MEDS: guaiFENesin 12 HR 600 MG TABCR 1200 MG PO (21:27)
[2025-01-07] MEDS: diazePAM (*CRX) 2 MG TABLET 4 MG PO (21:28)
--- NOTE | 2025-01-07 22:04 | P.HP_ITS ---
H&P: HPI History of Present Illness Date/Time: 01/07/25 22:04 Chief Complaint: Vision loss Narrative: This is a 79-year-old female patient with a past history of anxiety GERD and insomnia who presented to the emergency department on 01/05/25 after seeing her eye doctor then going to [facility] for complaint of vision loss to her right eye. Patient was found to have retinal artery occlusion diagnosed by eye doctor and Moderate stenosis of P1 segment of left posterior cerebral artery on CTA. Patient was already 2 days or longer out from original neuro deficit. She was accepted as a transfer at both [facility] and [facility] but no bed available at either facility. She was in ER until the evening of 01/07/25 awaiting placement. She was started on aspirin and clopidogrel and inst ructed not to lower blood pressure unless above 180 systolic per Neurology. Tonight her BP was above 190 systolic so she did get some IV hydralazine before admission to the floor. Patient states her loss of vision was sudden while she was working on a crossword puzzle about 4 days ago now. She notes she called her son in law who is an eye doctor. He sent her to the office then she was sent to the hospital by way of a stop at [facility]. Patient notes during our conversation that she is feeling confused and feels like this event has messed with my brain. She denies any numbness/tingling or motor weakness beyond her already deconditioned lower extremities. Patient denies any chest pain, difficulty breathing, nausea, vomiting, abdominal symptoms or any other complaints at this time. She still notes vision loss to her right eye and chronic hard of hearing status. A bed became available for transfer to [facility] about an hour after patient arrived to the floor. Review of Systems Review of Systems: All systems reviewed & are unremarkable except as noted in HPI and below PMFSH Family History Family History (Updated 01/07/25 @ 20:57 by Alicia Gudino RN) Father Cerebrovascular accident Mother Hypertension Social History Social History Smoking status: Never smoker Alcohol intake: never Substance use: never Lack of Transportation: No Lack of Food: Never True Current Housing: I Have Housing Concerned About Future Housing: No Difficulty Paying Gas/Electric Bills: No Difficulty Paying for Meds: No Currently Unemployed: No Education: Master's Degree or Higher Difficulty w/ Childcare or Family Care: No Spiritual care concerns: No Meds Home Medications and Allergies Home Medications ?Medication ?Instructions ?Recorded ?Confirmed ?Type bupropion HCl 150 mg 24 hr tablet, 150 mg PO DAILY 01/05/25 01/05/25 History extended release diazepam 2 mg tablet 6 mg PO HS 01/05/25 01/07/25 History fluoxetine 10 mg capsule 10 mg PO QAM 01/05/25 01/07/25 History fluoxetine 20 mg capsule 20 mg PO QAM 01/05/25 01/07/25 History guaifenesin 1,200 mg tablet, 1,200 mg PO HS 01/05/25 01/05/25 History extended release 12 hr (Mucinex) lisinopril 10 mg tablet 10 mg PO DAILY 01/05/25 01/05/25 History trazodone 100 mg tablet 200 mg PO QHS 01/05/25 01/07/25 History cetirizine 10 mg capsule (All Day 10 mg PO DAILY PRN allergies 01/07/25 01/07/25 History Allergy (cetirizine)) esomeprazole magnesium 20 mg 20 mg PO DAILY 01/07/25 01/07/25 History capsule,delayed release (Nexium) esomeprazole magnesium 40 mg 40 mg PO DAILY 01/07/25 01/07/25 History capsule,delayed release meloxicam 7.5 mg tablet 7.5 mg PO .COMPLEX 01/07/25 01/07/25 History Allergies Allergy/AdvReac Type Severity Reaction Status Date / Time No Known Allergies Allergy Verified 01/05/25 13:58 Vital Signs Vital Signs - 24 hr 01/07/25 00:04 01/07/25 03:28 01/07/25 07:11 Temperature Pulse Rate 73 66 64 Respiratory Rate 16 16 Blood Pressure 117/60 127/89 158/77 H Pulse Oximetry 97 95 01/07/25 08:00 01/07/25 08:30 01/07/25 09:30 Temperature Pulse Rate 69 64 83 Respiratory Rate 16 16 16 Blood Pressure 169/80 H 146/77 H 151/76 H Pulse Oximetry 98 96 97 01/07/25 10:30 01/07/25 10:31 01/07/25 10:45 Temperature Pulse Rate 70 71 72 Respiratory Rate 19 19 15 Blood Pressure 173/99 H Pulse Oximetry 96 96 96 01/07/25 11:00 01/07/25 11:00 01/07/25 11:01 Temperature 36.7 C Pulse Rate 68 67 68 Respiratory Rate 16 12 16 Blood Pressure 163/97 H 163/97 H Pulse Oximetry 96 96 96 01/07/25 11:15 01/07/25 11:31 01/07/25 11:33 Temperature Pulse Rate 66 99 82 Respiratory Rate 13 20 16 Blood Pressure 176/138 H Pulse Oximetry 97 96 98 01/07/25 11:45 01/07/25 12:00 01/07/25 12:10 Temperature Pulse Rate 71 93 96 Respiratory Rate 16 20 18 Blood Pressure 201/105 H Pulse Oximetry 96 97 01/07/25 12:11 01/07/25 12:13 01/07/25 12:15 Temperature Pulse Rate 90 94 95 Respiratory Rate 25 H 19 23 H Blood Pressure 201/105 H 212/113 H Pulse Oximetry 01/07/25 12:30 01/07/25 12:31 01/07/25 12:44 Temperature Pulse Rate 81 94 104 H Respiratory Rate 15 19 16 Blood Pressure 158/118 H 158/118 H Pulse Oximetry 01/07/25 12:45 01/07/25 13:00 01/07/25 13:14 Temperature Pulse Rate 102 H 92 88 Respiratory Rate 19 18 20 Blood Pressure 135/66 Pulse Oximetry 96 97 01/07/25 13:15 01/07/25 13:30 01/07/25 13:30 Temperature Pulse Rate 90 97 86 Respiratory Rate 22 H 20 14 Blood Pressure 145/59 H Pulse Oximetry 98 98 97 01/07/25 13:31 01/07/25 13:45 01/07/25 14:00 Temperature Pulse Rate 95 83 89 Respiratory Rate 28 H 15 16 Blood Pressure 145/59 H 144/51 H Pulse Oximetry 98 96 96 01/07/25 14:02 01/07/25 14:15 01/07/25 14:30 Temperature Pulse Rate 84 88 78 Respiratory Rate 18 17 16 Blood Pressure 149/73 H Pulse Oximetry 95 96 96 01/07/25 14:34 01/07/25 15:25 01/07/25 15:30 Temperature Pulse Rate 75 94 79 Respiratory Rate 14 31 H 22 H Blood Pressure Pulse Oximetry 96 01/07/25 15:31 01/07/25 15:46 01/07/25 16:29 Temperature Pulse Rate 83 97 90 Respiratory Rate 20 28 H 19 Blood Pressure 159/101 H Pulse Oximetry 01/07/25 16:30 01/07/25 16:32 01/07/25 16:40 Temperature 36.8 C Pulse Rate 87 89 89 Respiratory Rate 24 H 17 15 Blood Pressure 163/70 H 163/70 H Pulse Oximetry 97 97 97 01/07/25 16:45 01/07/25 17:00 01/07/25 17:01 Temperature Pulse Rate 84 86 91 Respiratory Rate 12 15 15 Blood Pressure 142/86 H Pulse Oximetry 98 95 96 01/07/25 17:15 01/07/25 17:22 01/07/25 17:41 Temperature Pulse Rate 85 81 Respiratory Rate 16 Blood Pressure 142/86 H Pulse Oximetry 96 96 96 01/07/25 17:45 01/07/25 18:25 01/07/25 18:59 Temperature Pulse Rate Respiratory Rate 17 14 Blood Pressure Pulse Oximetry 97 97 01/07/25 19:00 01/07/25 19:01 01/07/25 19:15 Temperature Pulse Rate Respiratory Rate 0 L 14 Blood Pressure 169/80 H Pulse Oximetry 01/07/25 19:31 01/07/25 19:32 01/07/25 20:01 Temperature Pulse Rate Respiratory Rate 15 12 17 Blood Pressure 163/85 H 184/94 H Pulse Oximetry 95 01/07/25 20:04 01/07/25 21:32 Temperature 36.6 C 36.7 C Pulse Rate 85 85 Respiratory Rate 13 18 Blood Pressure 194/82 H 136/82 Pulse Oximetry 96 96 Exam Narrative: GENERAL: Well-appearing, well-nourished, and in no acute distress. HEAD: Normocephalic, atraumatic. ENT:? Mucous membranes moist. Vision loss to right eye remains unchanged per patient report. Hard of hearing CHEST: Clear to auscultation.? No respiratory distress. HEART: Regular rate and rhythm. ? Normal peripheral pulses. ABDOMEN: Soft, nontender, nondistended. EXTREMITIES: Normal range of motion. No peripheral edema. SKIN: Warm dry normal color NEURO: Awake, alert, answers questions appropriately but reports mild confusion. H&P: Results Pulse Oximetry SpO2 results: 95-97% on room air Attestation: I personally reviewed and interpreted this pulse oximetry as follows: Interpretation: No need for supplemental oxygenation at this time ECG Attestation: I personally reviewed and interpreted this ECG as follows: ECG completion date: 01/05/25 ECG completion time: 13:53 Prior ECG tracings: not available for review Interpretation: Sinus rhythm rate of 65 AK interval 107 QRS duration 97 QTC 392 QRS axis -3? mild ST depression in lateral leads with flattening of T-waves in multiple leads no STEMI Imaging CT scan - head: Radiologist's impression: EXAMINATION: CTA BRAIN/CAROTID DATE: 01/05/2025 14:30 INDICATION: Stroke TECHNIQUE: Computed tomographic angiography (CTA) of the head and neck was performed with 100 mL Omnipaque-350 intravenous contrast. Multiplanar reconstructions and maximum intensity projection 3D-reconstructions of the carotid arteries and of the intracranial arteries were created by the technologist on a separate workstation. Precontrast CT of the head was also obtained. Automated exposure control and iterative reconstruction technique were employed.The dose-length product was 1754.01 mGy-cm. COMPARISON: None. FINDINGS: Carotid arteries: Visualized aortic arch is normal in caliber with no dissection and small amount of nonhemodynamically significant atherosclerotic plaque. Right vertebral artery is dominant. There is small of atherosclerotic plaque with 0% stenosis of the right and left carotid bulbs relative to normal distal artery lumen diameter (NASCET criteria). Likely benign Agnes right thyroid nodule. Mild emphysema in the visualized upper lungs. OR calcifications at bilateral breast implants. Severe cervical spondylosis. Head: No acute intracranial hemorrhage, acute infarction or abnormal extra axial fluid collection. Dystrophic calcifications and old lacunar infarcts at the bilateral basal ganglia. There is mild scattered white matter hypoattenuation consistent with chronic small vessel ischemic disease. Symmetric prominence of the sulci consistent with mild age-appropriate diffuse cerebral volume loss.Ventricles are normal and symmetric. No mass/mass effect. No abnormally enhancing brain lesions on the postcontrast imaging. Changes of bilateral intraocular lens replacement. The orbits, paranasal sinuses and mastoid air cells are normal. There is suggestion of some bone graft material along the floor of the right maxillary sinus surrounding tip of a dental implant. Intracranial arteries Vertebral arteries are codominant. Small amount of nonhemodynamically significant atherosclerotic plaque at the bilateral carotid siphons. There is no hemodynamically significant stenosis in the vertebral, basilar and internal carotid arteries. Both A1 and P1 segments are patent. There is a moderate, 50- 70% stenosis at the left P1 segment. There are no aneurysms identified. Cerebral arterial arborization appears symmetric. IMPRESSION: 1. Small mild atherosclerotic plaque with 0% stenosis of the right and left carotid bulbs relative to normal distal artery lumen diameter (NASCET criteria). 2. Moderate, 50-70% stenosis P1 segment of the left posterior cerebral artery. Otherwise unremarkable cerebral CT angiogram. 3. Small old infarcts at the bilateral basal ganglia. No acute intracranial process or abnormally enhancing brain lesions. 4. Age-related changes including mild diffuse volume loss and mild scattered white matter hypoattenuation consistent with chronic small vessel ischemic disease. Reviewed, dictated and finalized at location A. Chest x-ray: Radiologist's impression: CHEST RADIOGRAPH CLINICAL HISTORY: cva w/u . COMPARISON: None available TECHNIQUE: Single portable view of the chest. FINDINGS The cardiomediastinal silhouette is unremarkable. The lungs are clear. IMPRESSION: No focal infiltrate or effusion. Reviewed, dictated and finalized at location A. 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 -Transfer accepted to [facility] and [address] pending bed availability -Bed available at [facility] about an hour after arriving to the floor. -Transfer by BLS EMS approved (2) Elevated blood pressure reading: Code(s): R03.0 - Elevated blood-pressure reading, without diagnosis of hypertension Status: Acute Assessment and Plan: -No history of HTN in the past, possibly elevated physiologically trying to perfuse around stroke/stenosis. (3) Retinal artery occlusion, central: Code(s): H34.10 - Central retinal artery occlusion, unspecified eye Status: Acute Assessment and Plan: -Reported diagnosis from eye doctor prior to ER presentation (4) Sudden visual loss of right eye: Code(s): H53.131 - Sudden visual loss, right eye Status: Acute Assessment and Plan: -See above Quality VTE Prophylaxis VTE prophylaxis: mechanical ordered Hospitalist MIPS Advance Care Plan I have confirmed that the patient's Advanced Care Plan is present, code status is documented, or surrogate decision maker is listed in patient medical record.: Yes Medication Reconciliation I have utilized all available resources to obtain, update and review the patients current medications (includes all prescriptions, OTC, herbals, cannabis, and nutritional supplements).: Yes
--- NOTE | 2025-01-07 22:33 | PC.NURSE ---
PATIENT TRANSFERING TO [facility] ROOM 501. REPORT CALLED TO SEPTEMBER RN;[phone]. NICK ESTIMATED ARRIVAL AT 0000.
--- NOTE | 2025-01-07 23:13 | PM.TDS ---
Transfer Discharge Sum: Prov Provider Date of admission: 01/07/25 17:51 Primary care physician: PHYSICIAN NOT ON STAFF Admitting clinician: Charlotte Turner MD Consults: 01/05/25 Care Coordination Consult Routine Reason for Consult:: Advanced Directives 01/07/25 Consult to Physician Routine Comment: Consulting Provider: scallop dredger/MD group to consult: Neurology Reason for consultation: Stroke, spent 2 days in ER Has provider been notified: No Attending physician on discharge: Charlotte Turner Discharging clinician: Jorge Callahan Anticipated date of transfer: 01/08/25 Receiving physician/facility: [facility], Dr. 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: Code(s): I63.532 - Cerebral infarction due to unspecified occlusion or stenosis of left posterior cerebral artery Status: Acute (2) Elevated blood pressure reading: Code(s): R03.0 - Elevated blood-pressure reading, without diagnosis of hypertension Status: Acute (3) Retinal artery occlusion, central: Code(s): H34.10 - Central retinal artery occlusion, unspecified eye Status: Acute (4) Sudden visual loss of right eye: Code(s): H53.131 - Sudden visual loss, right eye Status: Acute (5) Insomnia: Code(s): G47.00 - Insomnia, unspecified Status: Acute (6) Hard of hearing: Code(s): H91.90 - Unspecified hearing loss, unspecified ear Status: Acute Transfer Discharge Sum: Med Medications Active and Home Medications: Home Medications bupropion HCl 150 mg 24 hr tablet, extended release 150 mg PO DAILY 01/05/25 [History Confirmed 01/05/25] diazepam 2 mg tablet 6 mg PO HS 01/05/25 [History Confirmed 01/07/25] fluoxetine 10 mg capsule 10 mg PO QAM 01/05/25 [History Confirmed 01/07/25] fluoxetine 20 mg capsule 20 mg PO QAM 01/05/25 [History Confirmed 01/07/25] guaifenesin 1,200 mg tablet, extended release 12 hr (Mucinex) 1,200 mg PO HS 01/05/25 [History Confirmed 01/05/25] lisinopril 10 mg tablet 10 mg PO DAILY 01/05/25 [History Confirmed 01/05/25] trazodone 100 mg tablet 200 mg PO QHS 01/05/25 [History Confirmed 01/07/25] cetirizine 10 mg capsule (All Day Allergy (cetirizine)) 10 mg PO DAILY PRN allergies 01/07/25 [History Confirmed 01/07/25] esomeprazole magnesium 20 mg capsule,delayed release (Nexium) 20 mg PO DAILY 01/07/25 [History Confirmed 01/07/25] esomeprazole magnesium 40 mg capsule,delayed release 40 mg PO DAILY 01/07/25 [History Confirmed 01/07/25] meloxicam 7.5 mg tablet 7.5 mg PO .COMPLEX 01/07/25 [History Confirmed 01/07/25] Active Medications Acetaminophen (Acetaminophen 325 Mg Tablet) 650 mg PO Q4H PRN PRN Reason: Mild Pain (1-3) or Fever Hydrocodone Bitart/Acetaminophen (Hydrocodone/Acetaminophen (*Crx) 5-325 Mg Tablet) 1 tab PO Q4H PRN PRN Reason: Pain Rated 4-6 Last Admin: 01/07/25 21:26 Dose: 1 tab Aspirin (Aspirin 81 Mg Chewable Tablet) 81 mg PO DAILY@0800 [facility] Last Admin: 01/07/25 08:45 Dose: 81 mg Bupropion HCl (Bupropion Hcl Xl (24 Hr) 150 Mg Tabcr) 150 mg PO DAILY [facility] Clopidogrel Bisulfate (Clopidogrel Bisulfate 75 Mg Tablet) 75 mg PO [facility] Last Admin: 01/07/25 08:45 Dose: 75 mg Diazepam (Diazepam (*Crx) 2 Mg Tablet) 4 mg PO [facility] Last Admin: 01/07/25 21:28 Dose: 4 mg Fluoxetine HCl (Fluoxetine Hcl 10 Mg Capsule) 30 mg PO [facility] Guaifenesin (Guaifenesin 12 Hr 600 Mg Tabcr) 1,200 mg PO [facility] Last Admin: 01/07/25 21:27 Dose: 1,200 mg Hydralazine HCl (Hydralazine Hcl 20 Mg/Ml Vial) 10 mg IV PUSH Q4-6H PRN PRN Reason: systolic blood pressure > 180 Last Admin: 01/07/25 20:09 Dose: 10 mg Lisinopril (Lisinopril 20 Mg Tablet) 40 mg PO QAM [facility] Last Admin: 01/07/25 08:47 Dose: 40 mg Loratadine (Loratadine 10 Mg Tablet) 10 mg PO QAM PRN PRN Reason: allergies Last Admin: 01/07/25 21:26 Dose: 10 mg Morphine Sulfate (Morphine Sulfate (*Crx) 2 Mg/Ml Inj) 2 mg IV PUSH Q2H PRN PRN Reason: Pain Rated 7-10 Ondansetron HCl (Ondansetron Inj 4 Mg/2 Ml Vial) 4 mg IV PUSH Q4H PRN PRN Reason: Nausea Pantoprazole Sodium (Pantoprazole 40 Mg Tablet) 40 mg PO QAM JAYLIN Trazodone HCl (Trazodone Hcl 50 Mg Tablet) 200 mg PO QHS [facility] Last Admin: 01/07/25 21:26 Dose: 200 mg Transfer Discharge Sum: Hosp Hospital Course Hospital course: This is a 79-year-old female patient with a past history of anxiety GERD and insomnia who presented to the emergency department on 01/05/25 after seeing her eye doctor then going to [facility] for complaint of vision loss to her right eye. Patient was found to have retinal artery occlusion diagnosed by eye doctor and Moderate stenosis of P1 segment of left posterior cerebral artery on CTA. Patient was already 2 days or longer out from original neuro deficit. She was accepted as a transfer at both [facility] and [facility] but no bed available at either facility. She was in ER until the evening of 01/07/25 awaiting placement. She was started on aspirin and clopidogrel and instructed not to lower blood pressure unless above 180 systolic per Neurology. Tonight her BP was above 190 systolic so she did get some IV hydralazine before admission to the floor. Patient states her loss of vision was sudden while she was working on a crossword puzzle about 4 days ago now. She notes she called her son in law who is an eye doctor. He sent her to the office then she was sent to the hospital by way of a stop at [facility]. Patient notes during our conversation that she is feeling confused and feels like this event has messed with my brain. She denies any numbness/tingling or motor weakness beyond her already deconditioned lower extremities. Patient denies any chest pain, difficulty breathing, nausea, vomiting, abdominal symptoms or any other complaints at this time. She still notes vision loss to her right eye and chronic hard of hearing status. A bed became available for transfer to [facility] about an hour after patient arrived to the floor. While patient was boarded in ER she did not get MRI, Echocardiogram with bubble study, A1c or lipid panel completed. She also did not have repeat labs drawn. She did remain on the monitor and no dysrhythmias were noted. She was admitted on Telemetry. We did approve a S ambulance transportation without monitoring for the 45 minute or less transfer. Patient Condition: Stable Time Spent with Patient Time attestation: Total time spent providing and/or coordinating transfer services: Total time spent: Less than 30 minutes Exam Narrative: GENERAL: Well-appearing, well-nourished, and in no acute distress. HEAD: Normocephalic, atraumatic. ENT:? Mucous membranes moist. Vision loss to right eye remains unchanged per patient report. Hard of hearing CHEST: Clear to auscultation.? No respiratory distress. HEART: Regular rate and rhythm. ? Normal peripheral pulses. ABDOMEN: Soft, nontender, nondistended. EXTREMITIES: Normal range of motion. No peripheral edema. SKIN: Warm dry normal color NEURO: Awake, alert, answers questions appropriately but reports mild confusion.
== END 2025-01-08 00:22 | disposition other institution (70) ==
LOC: ANHED 01-07 17:54 → ANH3MEDSUR 01-07 18:57 → ANH3MED 01-07 19:45
PROVIDERS: Admitting Provider General Practice; Emergency Provider Physician Assistant; Visit Provider General Practice
DX: I63.532 Cerebral infarction due to unspecified occlusion or stenosis of left posterior cerebral artery (principal); H53.131 Sudden visual loss, right eye; H34.10 Central retinal artery occlusion, unspecified eye; I10 Essential (primary) hypertension; K21.9 Gastro-esophageal reflux disease without esophagitis; F41.9 Anxiety disorder, unspecified; G47.00 Insomnia, unspecified
CPT/HCPCS: 36415; 70496; 70498; 71045; 80053; 83735; 84484; 85025; 85610; 85730; 93005; 96374; 96376; 99199; 99285; A9270; G0378; J0360; Q9967